=== PATIENT | female | born 1990 | race Caucasian/White ===

== ENCOUNTER 2020-04-05 16:46 | Emergency (ER) | payer OTHER ==
[~2020-04-05] VITALS: Ht 172.7 cm; Wt 82.3 kg
[~2020-04-05 16:46] MED LIST: CYCLOBENZAPRINE10 MG PO; NEXPLANON68 MG SUB-Q
[2020-04-05] MEDS ORDERED: ZOFRAN4 MG PO (20:36)
== END 2020-04-05 21:15 | disposition home or self-care (01) ==
LOC: ED 16:46
DX: O21.0 Mild hyperemesis gravidarum (principal); O99.891 Other specified diseases and conditions complicating pregnancy; D72.829 Elevated white blood cell count, unspecified; Z3A.01 Less than 8 weeks gestation of pregnancy; F17.200 Nicotine dependence, unspecified, uncomplicated
CPT/HCPCS: 80053; 81001; 83735; 85025; 96374; 99284-25; J2405; J7030

== ENCOUNTER 2020-04-12 05:22 | Emergency (ER) | payer OTHER ==
[~2020-04-12] VITALS: Ht 172.7 cm; Wt 81.6 kg
[~2020-04-12 05:22] MED LIST changes: +ZOFRAN4 MG PO
--- OUTSIDE RECORDS SUMMARY | 2020-04-12 05:24 | XMS ---
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 Kate has no Care Guidelines for this patient. Zoe VISIT COUNT (12 MO.) 3 [facility] TOTAL 3 NOTE: Visits indicate total known visits. ED/C VISIT TRACKING (12 MO.) [facility] COMPLAINT: - NAUSEA,VOMITING 04/05/2020 16:47 [facility] [place] TYPE: Emergency COMPLAINT: - VOMITING, STOMACHE PAIN, CHILLS, HOT DIAGNOSES: - Mild hyperemesis gravidarum - Less than 8 weeks gestation of - Nicotine dependence, unspecified, uncomplicated - Other specified diseases and conditions complicating - Elevated white blood cell count, unspecified - Nausea with vomiting, unspecified 06/25/2019 20:16 [facility] [place] TYPE: Emergency COMPLAINT: - BACK PAIN DIAGNOSES: - Low back pain - Nicotine dependence, unspecified, uncomplicated - Muscle spasm of back - Cough INPATIENT VISIT TRACKING (12 MO.) No inpatient visits to display in this time frame [email or web address]
[2020-04-12] MEDS ORDERED: ZOFRAN4 MG PO (07:27)
== END 2020-04-12 07:46 | disposition home or self-care (01) ==
LOC: ED 05:22
DX: O21.9 Vomiting of pregnancy, unspecified (principal); Z3A.08 8 weeks gestation of pregnancy; O99.331 Smoking (tobacco) complicating pregnancy, first trimester; F17.200 Nicotine dependence, unspecified, uncomplicated
CPT/HCPCS: 80053; 81001; 83690; 85025; 96374; 99284-25; J2405; J7030

== ENCOUNTER 2020-08-16 16:42 | Emergency (ER) | payer OTHER ==
[2020-08-16] MEDS ORDERED: OMEPRAZOLE40 MG PO (17:16)
[2020-08-16] MEDS ORDERED: ONDANSETRON ODT8 MG SL (17:17)
[2020-08-16] MEDS ORDERED: VITAMIN B-650 MG PO (17:17)
== END 2020-08-16 20:00 | disposition short-term general hospital (02) ==
LOC: ED 16:42
DX: O62.9 Abnormality of forces of labor, unspecified (principal); Z3A.26 26 weeks gestation of pregnancy; V49.9XXA Car occupant (driver) (passenger) injured in unspecified traffic accident, initial encounter; F17.200 Nicotine dependence, unspecified, uncomplicated; Z79.899 Other long term (current) drug therapy
CPT/HCPCS: 76815; 80053; 81001; 85025; 86900; 86901; 99285-25; J7121

== ENCOUNTER 2020-08-16 19:50 | Observation (INO) | payer OTHER ==
[~2020-08-16] VITALS: Ht 172.7 cm; Wt 79.4 kg
[~2020-08-16 19:50] MED LIST changes: +OMEPRAZOLE40 MG PO; +ONDANSETRON ODT8 MG SL; +VITAMIN B-650 MG PO
--- NOTE | 2020-08-16 20:22 | NUR ---
PT WAS SWABBED FOR COVID 19 FULL PPE DONNED
== END 2020-08-17 17:00 | disposition home or self-care (01) ==
LOC: FBC 19:50
PROVIDERS: ADMIT Obstetrics & Gynecology; ATTEND Obstetrics & Gynecology
DX: Z04.1 Encounter for examination and observation following transport accident (principal); O21.0 Mild hyperemesis gravidarum; O99.332 Smoking (tobacco) complicating pregnancy, second trimester; Z3A.25 25 weeks gestation of pregnancy; Z20.822 Contact with and (suspected) exposure to COVID-19; O47.9 False labor, unspecified
CPT/HCPCS: 96374; 96376; C9803; G0378; J2550; J7121; U0003

== ENCOUNTER 2020-11-19 09:04 | Inpatient (IN) | payer OTHER ==
[~2020-11-19] VITALS: Ht 172.7 cm; Wt 81.6 kg
[2020-11-20] MEDS ORDERED: PRENATAL VITAM1 EACH PO (02:48)
[2020-11-20] MEDS ORDERED: CYCLOBENZAPRINE10 MG PO (02:49)
--- NOTE | 2020-11-20 13:08 | PR ---
[facility] [address] [place], [place] [address] Signed Progress Notes IP Datetime Report Generated by CPN: 11/20/2020 13:07 PROGRESS NOTES: [id number] Impression: Normal Progression of Labor Procedures: Sterile Vag Exam Plan: Continue Present Management Other Informed Consents: Cook cath vs AROM at next check VITAL SIGNS: [id number] Vital Signs: Reviewed; Within Normal Limits EXAM: [id number] Dilatation: 2.0 Effacement: 60 Station: -3 Contractions: Irregular MEMBRANES: [id number] Comments: Pt seen and examined. Doing well. Moderately uncomfortable w/ contractions. Contractions still too frequent for cytotec. Pt does not tolerate vaginal exams well. Some cervical change noted since last exam. Discussed options and pt will continue ambulating / birthing ball etc. If not significant change at next exam, will consider Cook cath w/ either epiural or nitrous oxide vs AROM. Pt understands and agrees. FETUS A: [id number] FHR Baseline: 120 Variability: Moderate 6-25bpm Accelerations: 15X15 Decelerations: None FHR Category: Category I Presentation: Vertex Comments on Fetus A: No evidence of metabolic acidosis FETUS B: [id number] Signing Physician: Boris Chi DO Copies: ~ *Electronically Signed* 11/20/20 3195 BORIS CHI DO PATIENT NAME: MADHU MADDEN PROGRESS NOTE DATE OF : [birth year] PHYSICIAN: BORIS CHI DO [facility] #: [id number] REPORT IS CONFIDENTIAL AND NOT TO BE RELEASED WITHOUT AUTHORIZATION
--- NOTE | 2020-11-20 15:08 | PR ---
[facility] [place] [facility] [address] [facility] [place], [place] [address] Signed Progress Notes IP Datetime Report Generated by CPN: 11/20/2020 15:08 PROGRESS NOTES: [id number] Impression: Normal Progression of Labor Procedures: Sterile Vag Exam Plan: Cervical Ripening Other Informed Consents: Cook cath vs AROM at next check VITAL SIGNS: [id number] Vital Signs: Reviewed; Within Normal Limits EXAM: [id number] Dilatation: 2.0 Effacement: 60 Station: -3 Contractions: Irregular MEMBRANES: [id number] Comments: Pt seen and examined. Cervix unchanged and unripe. Unable to offer AROM and pt unable to tolerate Cook Cath. Recommend another course of cytotec. Discussed benefits and possible side effects. All questions answered FETUS A: [id number] FHR Baseline: 120 Variability: Moderate 6-25bpm Accelerations: 15X15 Decelerations: None FHR Category: Category I Presentation: Vertex Comments on Fetus A: No evidence of metabolic acidosis FETUS B: [id number] Signing Physician: Yassine Sunshine DO Copies: ~ *Electronically Signed* 11/20/20 1508 YASSINE SUNSHINE DO PATIENT NAME: MADHU MADDEN PROGRESS NOTE DATE OF : 90 PHYSICIAN: YASSINE SUNSHINE DO RPT #: [id number] REPORT IS CONFIDENTIAL AND NOT TO BE RELEASED WITHOUT AUTHORIZATION
--- NOTE | 2020-11-21 07:59 | PR ---
[facility] [address] [place], [place] [address] Signed Progress Notes IP Datetime Report Generated by CPJose: 11/21/2020 07:59 PROGRESS NOTES: [id number] Impression: Reassuring Heart Rate Procedures: Sterile Vag Exam Other Procedures: Cook Cath placement Plan: Augmentation Informed Consent Obtain: Vaginal Delivery; Section Delivery; Induction of Labor Other Informed Consents: Cook Cath VITAL SIGNS: [id number] Vital Signs: Reviewed; Within Normal Limits EXAM: [id number] Dilatation: 1.5 Effacement: 60 Station: -3 Contractions: Irregular MEMBRANES: [id number] Comments: Pt seen and examined. Pt received several additional doses of cytotec overnight with minimal cervical change. CTXs became more painful and pt received epidural. On cervical exam, cx unchanged and AROM not recommended. Discussed mechanical cervical ripening w/ Cook cath and pt agrees. Cook cath placed per applications intern's instructions w/ 40/20 in uterine/vaginal balloons to be serially increased until 80/80. Prolonged deceleration noted; previously CAT 1 and FHT much improved w/ position changes. Will monitor closely FETUS A: [id number] FHR Baseline: 120 Variability: Moderate 6-25bpm Accelerations: 15X15 Decelerations: None FHR Category: Category I Presentation: Vertex Comments on Fetus A: No evidence of metabolic acidosis FETUS B: [id number] Signing Physician: Yassine Sunshine DO Copies: *Electronically Signed* 11/21/20 0759 YASSINE SUNSHINE DO PATIENT NAME: MADHU MADDEN PROGRESS NOTE DATE OF : 90 PHYSICIAN: YASSINE SUNSHINE DO RPT #: [id number] REPORT IS CONFIDENTIAL AND NOT TO BE RELEASED WITHOUT AUTHORIZATION [facility] [address] [place] [address] [place] [address] Signed ~ *Electronically Signed* 11/21/20 0759 YASSINE SUNSHINE DO PATIENT NAME: MADHU MADDEN PROGRESS NOTE DATE OF : 90 PHYSICIAN: YASSINE SUNSHINE DO RPT #: [id number] REPORT IS CONFIDENTIAL AND NOT TO BE RELEASED WITHOUT AUTHORIZATION
--- NOTE | 2020-11-21 10:58 | PR ---
[facility] [address] [facility] [place], [place] [address] Signed Progress Notes IP Datetime Report Generated by CPN: 11/21/2020 10:58 PROGRESS NOTES: [id number] Impression: Reassuring Heart Rate Procedures: Sterile Vag Exam Other Procedures: Cook Cath placement Plan: Continue Present Management Informed Consent Obtain: Vaginal Delivery; Section Delivery; Induction of Labor Other Informed Consents: Cook Cath VITAL SIGNS: [id number] Vital Signs: Reviewed; Within Normal Limits EXAM: [id number] Dilatation: 1.5 Effacement: 60 Station: -3 Contractions: Irregular MEMBRANES: [id number] Comments: Pt seen and examined. Doing well. Cook cath in place. No concerns. Continue Cook cath FETUS A: [id number] FHR Baseline: 120 Variability: Moderate 6-25bpm Accelerations: 15X15 Decelerations: None FHR Category: Category I Presentation: Vertex Comments on Fetus A: No evidence of metabolic acidosis FETUS B: [id number] Signing Physician: Yassine Sunshine DO Copies: ~ *Electronically Signed* 11/21/20 1058 YASSINE SUNSHINE DO PATIENT NAME: FARIBAMADHU RIOJAS PROGRESS NOTE DATE OF : 90 PHYSICIAN: YASSINE SUNSHINE DO RPT #: [id number] REPORT IS CONFIDENTIAL AND NOT TO BE RELEASED WITHOUT AUTHORIZATION
--- NOTE | 2020-11-21 13:06 | PR ---
[facility] [address] [place], [place] [address] Signed Progress Notes IP Datetime Report Generated by COLT: 11/21/2020 13:06 PROGRESS NOTES: [id number] Impression: Normal Progression of Labor; Reassuring Heart Rate Procedures: Artificial ROM; Intrauterine Pressure Catheter; Sterile Vag Exam Other Procedures: Cook Cath placement Plan: Continue Present Management Informed Consent Obtain: Vaginal Delivery; Section Delivery; Induction of Labor Other Informed Consents: Cook Cath VITAL SIGNS: [id number] Vital Signs: Reviewed; Within Normal Limits EXAM: [id number] Dilatation: 1.5 Effacement: 60 Station: -3 Contractions: Irregular MEMBRANES: [id number] Comments: Pt seen and examined. Doing well. On SVE, Cook has passed thru cervix and was removed. Vertex well applied, and after verbal consent AROM performed without difficulty for moderate/large amount clear fluid. IUPC placed w/out difficulty. Will monitor progress and consider augmentation if needed. Pt understands and agrees. FETUS A: [id number] FHR Baseline: 120 Variability: Moderate 6-25bpm Accelerations: 15X15 Decelerations: None FHR Category: Category I Presentation: Vertex Comments on Fetus A: No evidence of metabolic acidosis FETUS B: [id number] Signing Physician: Yassine Sunshine DO Copies: ~ *Electronically Signed* 11/21/20 1306 YASSINE SUNSHINE DO PATIENT NAME: MADHU MADDEN PROGRESS NOTE DATE OF : 90 PHYSICIAN: YASSINE SUNSHINE DO RPT #: [id number] REPORT IS CONFIDENTIAL AND NOT TO BE RELEASED WITHOUT AUTHORIZATION
--- NOTE | 2020-11-21 21:18 | PR ---
[facility] [address] [place], [place] [address] Signed Progress Notes IP Datetime Report Generated by CPN: 11/21/2020 21:18 PROGRESS NOTES: [id number] Impression: Normal Progression of Labor; Reassuring Heart Rate Other Impressions: Slow progression of labor Procedures: Sterile Vag Exam Other Procedures: Cook Cath placement Plan: Continue Present Management Informed Consent Obtain: Vaginal Delivery; Section Delivery; Induction of Labor Other Informed Consents: Cook Cath VITAL SIGNS: [id number] Vital Signs: Reviewed; Within Normal Limits EXAM: [id number] Dilatation: 6.0 Effacement: 90 Station: -1 Contractions: Irregular MEMBRANES: [id number] ROM Note: By Dr. Sunshine Comments: Pt seen and examined. Pt struggling with pain control w/ multiple reboluses of epidural. FHT reassuring. Significant caput noted and minimal change w/ pitocin, although CTX inadequate. Difficult time increasing pitocin due to patient discomfort. Nitrous oxide initiated w/ minimal relief. Discussed anticipated course of labor and indications for if needed. FETUS A: [id number] FHR Baseline: 120 Variability: Moderate 6-25bpm Accelerations: 15X15 Decelerations: None FHR Category: Category I Presentation: Vertex Comments on Fetus A: No evidence of metabolic acidosis FETUS B: [id number] Signing Physician: Yassine Sunshine DO Copies: *Electronically Signed* 11/21/20 9876 YASSINE SUNSHINE DO PATIENT NAME: MADHU MADDEN PROGRESS NOTE DATE OF : 90 PHYSICIAN: YASSINE SUNSHINE DO RPT #: [id number] REPORT IS CONFIDENTIAL AND NOT TO BE RELEASED WITHOUT AUTHORIZATION [address] [place], [place] [address] Signed ~ *Electronically Signed* 11/21/20 2118 YASSINE SUNSHINE DO PATIENT NAME: MADHU MADDEN PROGRESS NOTE DATE OF : 90 PHYSICIAN: YASSINE SUNSHINE DO RPT #: [id number] REPORT IS CONFIDENTIAL AND NOT TO BE RELEASED WITHOUT AUTHORIZATION
--- NOTE | 2020-11-21 21:52 | PR ---
[facility] [address] [place], [place] [address] Signed Progress Notes IP Datetime Report Generated by COLT: 11/21/2020 21:52 PROGRESS NOTES: [id number] Impression: Arrest of Dilatation/Descent; Non-reassuring Heart Rate Other Impressions: Slow progression of labor Procedures: Sterile Vag Exam Other Procedures: Cook Cath placement Plan: Deliver- Section Informed Consent Obtain: Section Delivery; Risks, Benefits and Alternatives Discussed Other Informed Consents: Cook Cath VITAL SIGNS: [id number] Vital Signs: Reviewed; Within Normal Limits EXAM: [id number] Dilatation: 6.0 Effacement: 90 Station: -1 Contractions: Irregular MEMBRANES: [id number] ROM Note: By Dr. Sunshine Comments: Called to pt room for deep variabile deceleration. Exam unchanged and pt very uncomfortable. Again consider caput noted. Pitocin stopped per protocol. Discussed continued trail of labor vs . Given minimal cervical change, pt discomfort, and now intolerance of labor, recommend proceeding with primary LTCS. Pt and partner understand and agree. Reviewed risks/benefits/alternatives in detail. Discussed implications on future pregnancies. All questions answered. Consents signed. OR crew and Dr. Chi called and en route. Anesthesia in house and evaluating pt. Ancef 2g IV and Azithromicin 500mg IV now. FETUS A: [id number] FHR Baseline: 120 Variability: Moderate 6-25bpm Accelerations: 15X15 Decelerations: None FHR Category: Category I Presentation: Vertex Comments on Fetus A: No evidence of metabolic acidosis FETUS B: [id number] Signing Physician: Yassine Sunshine DO *Electronically Signed* 11/21/202151 YASSINE SUNSHINE DO PATIENT NAME: MADHU MADDEN NISHANT PROGRESS NOTE DATE OF : 90 PHYSICIAN: YASSINE SUNSHINE DO RPT #: [id number] REPORT IS CONFIDENTIAL AND NOT TO BE RELEASED WITHOUT AUTHORIZATION [address] [place] [address] Signed Copies: ~ *Electronically Signed* 11/21/202151 YASSINE SUNSHINE DO PATIENT NAME: MADHU MADDENN PROGRESS NOTE DATE OF : 90 PHYSICIAN: YASSINE SUNSHINE DO RPT #: [id number] REPORT IS CONFIDENTIAL AND NOT TO BE RELEASED WITHOUT AUTHORIZATION
--- NOTE | 2020-11-21 23:13 | NUR ---
11/21/20 2313 Debi Snyder 2258: PT ARRIVES TO [facility] RM 105 FROM OR AWAKE, RESP EVEN AND UNLABORED ON RA. PT ANSWERS COMMANDS BUT APPEARS SOMEWHAT DROWSY FROM MEDICATIONS. LETITIA RN IN ON ARRIVAL WITH . SIG OTHER IN ASSISTING WITH BABY. 2301: ON RIGHT BREAST, FUNDUS FIRM WITH MASSAGE. PT DENIES PAIN, JUST STATES BEING TIRED.
--- NOTE | 2020-11-22 14:29 | PR ---
[facility] [address] [facility] [place], [place] [address] Signed PP Progress Notes Datetime Report Generated by CPN: 11/22/2020 14:29 SUBJECTIVE: [id number] Pain: Within Normal Limits Nausea/Vomiting: Denies Flatus: Yes Bowel Movement: No Vital Signs: [id number] Vital Signs: Reviewed; Within Normal Limits EXAM: Ongoing Cardiovascular: Normal Respiratory: Normal Abdomen/Uterus: Normal Lochia: Normal CVA Tenderness: Normal Extremities: Normal Incision: Normal Progress: Normal Exam Comments: Fundus firm U-2. Incision dry / clean / intact. Mandujano cath in place draining concentrated urine IMPRESSION/PLAN/PROCEDURES: [id number] Impression: Normal Progression Plan: Continue Present Management Progress Notes: Pt seen and examined. Doing well. Tolerating full diet. Mandujano cath in place and pt has not yet ambulated. No fevers/chills/heavy bleeding or other concerns. well. No questions or concerns. Will ambulate and d/c mandujano. Continue routine care Signing Physician: Yassine Sunshine DO Copies: ~ *Electronically Signed* 11/22/20 1429 YASSINE SUNSHINE DO PATIENT NAME: MADHU MADDEN PROGRESS NOTE DATE OF : 90 PHYSICIAN: YASSINE SUNSHINE DO RPT #: [id number] REPORT IS CONFIDENTIAL AND NOT TO BE RELEASED WITHOUT AUTHORIZATION
--- NOTE | 2020-11-23 11:57 | PR ---
[facility] [address] [place], [place] [address] Signed PP Progress Notes Datetime Report Generated by CPN: 11/23/2020 11:57 SUBJECTIVE: [id number] Pain: Within Normal Limits Nausea/Vomiting: Denies Flatus: Yes Bowel Movement: No Vital Signs: [id number] Vital Signs: Reviewed; Within Normal Limits EXAM: Ongoing Cardiovascular: Normal Respiratory: Normal Abdomen/Uterus: Normal Lochia: Normal Vulva/Perineum: Not Done Breasts: Not Done CVA Tenderness: Normal Extremities: Normal Incision: Normal Progress: Normal Exam Comments: Fundus firm U-2 nontender. Incision clean / dry w/ angel intact IMPRESSION/PLAN/PROCEDURES: [id number] Impression: Normal Progression Plan: Remove [place]; Discharge Progress Notes: Pt seen and examined. Doing well. Ambulating, voiding, and tolerating full diet. Pain and lochia minimal. Breast and bottle feeding. No fevers/chills/other concerns. Desires d/c home today. Planning depo for pp contraception. F/U 2 wks. Reviewed d/c instructions in detail. Signing Physician: Yassine Sunshine DO Copies: ~ *Electronically Signed* 11/23/20 5292 YASSINE SUNSHINE DO PATIENT NAME: MADHU MADDEN PROGRESS NOTE DATE OF : 90 PHYSICIAN: YASSINE SUNSHINE DO RPT #: [id number] REPORT IS CONFIDENTIAL AND NOT TO BE RELEASED WITHOUT AUTHORIZATION
--- NOTE | 2020-11-28 07:05 | OR ---
[facility] [address] [place] [id number] Signed DATE OF OPERATION: 11/21/2020 SURGEON: Yassine Sunshine DO PREOPERATIVE DIAGNOSES: 1. Term . 2. Polyhydramnios. 3. Failure to progress. 4. intolerance of labor. POSTOPERATIVE DIAGNOSES: 1. Term . 2. Polyhydramnios. 3. Failure to progress. 4. intolerance of labor. PROCEDURE PERFORMED: Primary low transverse delivery. ANESTHESIA: Epidural. CAFETERIA TEAM LEADER: Kae Chi DO. COMPLICATIONS: None. ESTIMATED BLOOD LOSS: 500 mL. FINDINGS: Delivery of viable female weighing 6 pounds 13 ounces with Apgars of 8 and 9, born in the LOT position with asynclitism noted and nuchal cord x1. Clear amniotic fluid. Normal tubes and ovaries and normal uterus other than a somewhat edematous lower uterine segment. COMPLICATIONS: None. Electronically Signed By: YASSINE SUNSHINE DO 11/28/20 0705 PATIENT NAME: MADHU MADDEN OPERATIVE REPORT DATE OF : 90 REPORT #: [id number] PHYSICIAN: YASSINE SUNSHINE DO PCP: YASSINE SUNSHINE DO REPORT IS CONFIDENTIAL AND NOT TO BE RELEASED WITHOUT AUTHORIZATION [address] [address] Signed INDICATIONS: Ms. Madden is a pleasant 30-year-old, G1 female who presented to Labor and Delivery for scheduled elective induction of labor. Cervix was found to be unripe and she was ripened for nearly 24 hours with Cytotec with minimal change in her cervix. A Cook catheter was placed without difficulty and once Cook catheter was expelled from the cervical os AROM was performed. Contractions were inadequate and Pitocin augmentation was performed. The patient received a labor epidural prior to placement of the Cook catheter due to discomfort with contractions and with pelvic exams. Minimal change was noted for many hours and significant caput and asynclitism was suspected. The patient struggled with pain control despite multiple boluses of her epidural and the addition of nitrous oxide. Fetus then developed recurrent deep variable decelerations. Decision was made to proceed with primary low transverse delivery. Risks, benefits, and alternatives were discussed in detail with the patient. The patient and her partner understand and wish to proceed with the procedure. TECHNIQUE: The patient was taken to the operating room where a time-out was performed to confirm correct patient and correct procedure. Epidural anesthetic was bolused and found to be adequate. A Glass catheter had been previously inserted. The patient received Ancef 2 g preoperatively and azithromycin 500 mg IV and heparin was not indicated. The patient was prepped and draped in the supine position with a bump in her right hip. Once epidural was found to be adequate, a Pfannenstiel skin incision was made with a surgical scalpel and carried through the subcu and the fascia was nicked in the midline. Fascial incision was extended bilaterally using curved Mccall scissors. Fascia was grasped with Tennille's, elevated, and the underlying rectus muscles dissected bluntly and sharply. The rectus muscles were then divided in the midline. The peritoneum was grasped with hemostats and entered sharply. Peritoneal incision was extended bilaterally using blunt and sharp dissection. An Royce self retractor was placed after no pelvic or abdominal adhesions were encountered. The lower uterine segment was noted to be quite edematous, but otherwise pelvis appeared normal. Hysterotomy was performed using a surgical scalpel and clear amniotic fluid was noted. The surgeon's hand was placed into the uterine cavity after the hysterotomy was extended bilaterally using blunt dissection. The vertex was elevated in the abdomen, delivered with the assistance of fundal pressure in the LOT position with significant caput and asynclitism noted. The nuchal cord was reduced and the remainder of the was delivered without difficulty. The was vigorous and cried upon delivery. Cord was doubly clamped and cut. The handed to the waiting pediatric team for further care. Cord blood was obtained for routine analysis. The placenta was expressed intact with a centrally inserted three-vessel cord and the uterine cavity was cleared of any remaining products of conception or clot. Pitocin was given per protocol. Hysterotomy was then repaired in two layers using 0 Monocryl with the first being a running locked layer and the second a vertical imbricating suture. Small amount of oozing was noted on the left side. This Electronically Signed By: YASSINE SUNSHINE DO 11/28/2005 PATIENT NAME: MADHU MADDEN OPERATIVE REPORT DATE OF : [birth year] REPORT #: [id number] PHYSICIAN: YASSINE SUNSHINE DO PCP: YASSINE SUNSHINE DO REPORT IS CONFIDENTIAL AND NOT TO BE RELEASED WITHOUT AUTHORIZATION [facility] [address] [place], [place] [address] Signed was made hemostatic with a figure of eight of 0 Monocryl. The pelvis was irrigated and found to be hemostatic. The patient had significant nausea and emesis as well as some discomfort at this point and decision was made to not place ACell. The uterus, tubes, and ovaries were examined, found to be normal. The pelvis was cleared of any remaining clot. Peritoneum was reapproximated using 2-0 Vicryl in a running nonlocked manner. Rectus was examined, found to be hemostatic after judicious use of Bovie electrocautery. Rectus was plicated loosely in the midline using 0 Vicryl in an interrupted suture. Fascia was then reapproximated using 0 Vicryl in a running nonlocked manner. Subcu was irrigated and found to be hemostatic after judicious use of Bovie electrocautery. Subcu was reapproximated using 3-0 Vicryl in a running nonlocked manner and the skin was reapproximated using surgical angel. The uterus was Crede'd for scant amount of blood. The patient was taken to PACU in good and stable condition. Sponge, needle, and instrument counts were correct x2 at the end of the procedure. Dr. Chi was present and participated in all portions of procedure. Yassine Sunshine DO JDW/MODL /[id number] Copies: ~ Electronically Signed By: YASSINE SUNSHINE DO 11/28/20 0705 PATIENT NAME: MADHU MADDEN OPERATIVE REPORT DATE OF : [birth year] REPORT #: [id number] PHYSICIAN: YASSINE SUNSHINE DO PCP: YASSINE SUNSHINE DO REPORT IS CONFIDENTIAL AND NOT TO BE RELEASED WITHOUT AUTHORIZATION
== END 2020-11-23 13:20 | disposition home or self-care (01) | DRG 788 ==
LOC: FBC 11-20 00:08
PROVIDERS: ADMIT Obstetrics & Gynecology; ATTEND Obstetrics & Gynecology
PROC: 10H07YZ Insertion of Other Device into Products of Conception, Via Natural or Artificial Opening (ICD-10-PCS; 2020-11-20)
PROC: 10D00Z1 Extraction of Products of Conception, Low, Open Approach (ICD-10-PCS; principal; 2020-11-21 22:15)
DX: O40.3XX0 Polyhydramnios, third trimester, not applicable or unspecified (principal); O62.2 Other uterine inertia; Z37.0 Single live birth; O76 Abnormality in fetal heart rate and rhythm complicating labor and delivery; O69.81X0 Labor and delivery complicated by cord around neck, without compression, not applicable or unspecified; O99.344 Other mental disorders complicating childbirth; F32.9 Major depressive disorder, single episode, unspecified; F41.9 Anxiety disorder, unspecified
CPT/HCPCS: 01961; 85027; J0456; J0690; J1100; J1650; J1885; J2250; J2274; J2370; J2405; J2550; J2590; J2795; J3010; J7060; J7121

== ENCOUNTER 2021-12-09 08:20 | Emergency (ER) | payer OTHER ==
[~2021-12-09] VITALS: Ht 172.7 cm; Wt 68.0 kg
[~2021-12-09 08:20] MED LIST changes: +PRENATAL VITAM1 EACH PO
[2021-12-09] MEDS ORDERED: HYDROCODON-ACE1 EA10 PO (13:42)
== END 2021-12-09 14:01 | disposition home or self-care (01) ==
LOC: ED 08:20
DX: K64.5 Perianal venous thrombosis (principal); F17.200 Nicotine dependence, unspecified, uncomplicated
CPT/HCPCS: 46083; 99282-25; 99406; A9270

== ENCOUNTER 2024-10-01 21:27 | Emergency (ER) | payer OTHER ==
[~2024-10-01] VITALS: Ht 172.7 cm; Wt 68.3 kg
[~2024-10-01 21:27] MED LIST changes: +HYDROCODON-ACE1 EA10 PO
[2024-10-01 21:43] LABS: BASOPHILS 0.6 % (0.1-1.2); EOSINOPHILS 0.8 % (0.7-5.8); LYMPHOCYTES 15.7 % (19.3-51.7); MCH 30.1 PG (25.6-32.2); MCHC 33.2 g/dL (32.2-35.5); MCV 90.9 fL (79.4-94.8); MONOCYTES 4.7 % (4.7-12.5); NEUTROPHILS 77.8 % (34.0-71.1); RBC 4.81 M/uL (3.93-5.22)
[2024-10-01 21:59] LABS: ALCOHOL, MEDICAL 149.0 ng/dL (<3); ALT (SGPT) 19.0 U/L (14-59); AST (SGOT) 30.0 U/L (15-37); GLOMERULAR FILTRATION RATE,EST 114.0 mL/min (>60); PROTEIN, TOTAL 7.2 g/dL (6.4-8.2); UREA NITROGEN 8.0 mg/dL (7-18)
[2024-10-01] MEDS ORDERED: ONDANSETRON 4 MG HOME.PACK SL ONE (22:30)
[2024-10-01 22:41] VITALS: BP 100/85
== END 2024-10-01 22:41 | disposition home or self-care (01) ==
LOC: ED 21:27
PROVIDERS: Family Medicine
DX: R11.2 Nausea with vomiting, unspecified (principal); F17.200 Nicotine dependence, unspecified, uncomplicated
CPT/HCPCS: 36415; 80053; 83690; 84703; 85025; 96374; 99284-25; A9270; G0480; J1790